=== PATIENT | female | born 1995 | race Two or more races ===

== ENCOUNTER 2021-05-06 15:15 | Observation (INO) | payer MEDICAID, OTHER ==
[2021-05-06] MEDS ORDERED: PREN-96 PO (17:05)
[2021-05-06 18:45] LABS: Urine Bacteria FEW /hpf (None Seen); Urine Blood Negative /uL (Negative); Urine Specific Gravity 1.012 (1.001-1.035); Urine WBC 17 /hpf (0 - 5)
[2021-05-06 18:57] LABS: Albumin 2.7 g/dL (3.4-5.0); Calcium 9.8 mg/dL (8.5-10.1); Potassium 3.8 mmol/L (3.5-5.1)
[2021-05-06 19:05] LABS: INR 0.9 (0.9-1.15); Partial Thromboplastin Time 27.9 sec (23.6-33.0)
[2021-05-06 19:37] LABS: BUN/Creatinine Ratio 21.4; Bilirubin, Total 0.2 mg/dL (0.2-1.0); Total Protein 6.3 g/dL (6.4-8.2); Uric Acid 3.7 mg/dL (2.6-6.0)
[2021-05-06 22:59] LABS: Protein, Urine 21.3 mg/dL (0.0-11.9)
[2021-05-08 08:06] LABS: RPR Non Reactive (Non Reactive)
[2021-05-08 21:43] LABS: 24 Hr. Total Protein, Urine 245.7 mg/24 Hr (<149.1); Protein, Urine 18.9 mg/dL (0.0-11.9)
== END 2021-05-06 20:22 | disposition home or self-care (01) ==
LOC: LDRP 15:15
PROVIDERS: ADMIT Obstetrics & Gynecology Obstetrics; ATTEND Obstetrics & Gynecology Obstetrics
DX: O13.3 Gestational [pregnancy-induced] hypertension without significant proteinuria, third trimester (principal); Z3A.38 38 weeks gestation of pregnancy; Z79.899 Other long term (current) drug therapy
CPT/HCPCS: 36415; 59025; 76818; 80053; 81001; 81002; 82570; 82962; 84156; 84550; 85362; 85379; 85610; 85730; 86592; G0378

== ENCOUNTER 2021-05-08 10:21 | Observation (INO) | payer MEDICAID ==
[~2021-05-08 10:21] MED LIST: PREN-96 PO
[2021-05-08 21:43] LABS: 24 Hr. Total Protein, Urine 245.7 mg/24 Hr (<149.1); Protein, Urine 18.9 mg/dL (0.0-11.9)
== END 2021-05-08 16:02 | disposition home or self-care (01) ==
LOC: LDRP 12:22
PROVIDERS: ADMIT Obstetrics & Gynecology; ATTEND Obstetrics & Gynecology
DX: O13.3 Gestational [pregnancy-induced] hypertension without significant proteinuria, third trimester (principal); Z3A.38 38 weeks gestation of pregnancy
CPT/HCPCS: 59025; 81002; 84156; 94760; G0378

== ENCOUNTER 2021-05-10 15:36 | Observation (INO) | payer MEDICAID | END 2021-05-10 19:26 | disposition home or self-care (01) | LOC: LDRP 15:36 | PROVIDERS: ADMIT Obstetrics & Gynecology; ATTEND Obstetrics & Gynecology | DX: O13.3 Gestational [pregnancy-induced] hypertension without significant proteinuria, third trimester (principal); Z3A.38 38 weeks gestation of pregnancy | CPT/HCPCS: 59025; 76818; 81002; G0378 ==

== ENCOUNTER 2021-05-14 07:44 | Observation (INO) | payer MEDICAID ==
[2021-05-14 15:18] LABS: Protein, Urine 15.1 mg/dL (0.0-11.9)
[2021-05-14 15:51] LABS: Basophils # (auto) 0.1 10 ^3/uL (0-0.2); Basophils % (auto) 1.1 % (0.0-2.0); Eosinophils # (auto) 0 10 ^3/uL (0-0.8); Eosinophils % (auto) 0.3 % (0.0-7.0); Hematocrit 34.5 % (36.0-46.0); Hemoglobin 11.7 g/dL (12.2-16.2); Lymphocytes # (auto) 1.5 10 ^3/uL (0.4-5.4); Mean Corpuscular Hemoglobin 32.7 pg (28.0-32.0); Mean Corpuscular Volume 96.1 fL (80.0-100.0); Monocytes # (auto) 0.9 10 ^3/uL (0-1.3); Monocytes % (auto) 13.4 % (0.0-12.0); Neutrophils # (auto) 4.1 10 ^3/uL (1.6-8.6); Neutrophils % (auto) 62.2 % (37.0-80.0); Nucleated Red Blood Cells % 0.1 %; Red Blood Cells 3.59 10^6/uL (4.0-5.20); Red Cell Distribution Width 13.8 % (11.8-14.3); White Blood Cell 6.6 10^3/uL (4.4-10.8)
[2021-05-14 16:20] LABS: 24 Hr. Total Protein, Urine 249.1 mg/24 Hr (<149.1)
== END 2021-05-14 17:00 | disposition home or self-care (01) ==
LOC: LDRP 13:40
PROVIDERS: ADMIT Obstetrics & Gynecology; ATTEND Obstetrics & Gynecology
DX: O13.3 Gestational [pregnancy-induced] hypertension without significant proteinuria, third trimester (principal); Z3A.39 39 weeks gestation of pregnancy
CPT/HCPCS: 36415; 59025; 76818; 81002; 84156; 85025; 94760; G0378; G0379

== ENCOUNTER 2021-05-19 09:05 | Observation (INO) | payer MEDICAID | END 2021-05-19 11:34 | disposition home or self-care (01) | LOC: LDRP 09:05 | PROVIDERS: ADMIT Obstetrics & Gynecology; ATTEND Obstetrics & Gynecology | DX: O13.3 Gestational [pregnancy-induced] hypertension without significant proteinuria, third trimester (principal); O62.9 Abnormality of forces of labor, unspecified; Z3A.39 39 weeks gestation of pregnancy | CPT/HCPCS: 59025; 76818; 81002; G0378; G0379 ==

== ENCOUNTER 2021-05-19 21:22 | Inpatient (IN) | payer MEDICAID ==
[~2021-05-19] VITALS: Ht 144.8 cm; Wt 72.6 kg
[2021-05-19] MEDS ORDERED: LACT. RINGERS/OXYTOCIN 20UNITS 500 ML IV ONE ×2 (21:30→22:00)
[2021-05-19] MEDS ORDERED: PHISODERM TOP SOLN 240ML BTL TOP PRN (21:30)
[2021-05-19] MEDS ORDERED: BUTORPHANOL TARTRATE 2 MG/1 ML VIAL IV PRN ×2 (21:30)
[2021-05-19] MEDS ORDERED: DERMOPLAST 60ML BOTTLE TOP PRN (21:30)
[2021-05-19] MEDS ORDERED: miSOPROStol 50 MCG per PRE-CUT 1/2 TAB PO PRN (21:30)
[2021-05-19] MEDS ORDERED: PENICILLIN G POT 5MIL/D5 50ML 50 ML IV ONE (21:30)
[2021-05-19] MEDS ORDERED: PROMETHAZINE HCL 25 MG/ML 1ML IV PRN (21:30)
[2021-05-19] MEDS ORDERED: LIDOCAINE 2%HCL (LOCAL ANESTH.) INJ 20ML MDV IJ PRN (21:30)
[2021-05-19] MEDS ORDERED: WITCH HAZEL-GLYCERIN PAD TOP PRN (21:30)
[2021-05-19] MEDS: LACTATED RINGER'S 1,000 ML IV SCH (21:56)
[2021-05-19] MEDS ORDERED: guaiFENesin 200 MG/10 ML UD PO ONE (22:30)
[2021-05-19 22:37] LABS: Basophils # (auto) 0.1 10 ^3/uL (0-0.2); Basophils % (auto) 0.9 % (0.0-2.0); Eosinophils # (auto) 0.2 10 ^3/uL (0-0.8); Eosinophils % (auto) 2.2 % (0.0-7.0); Hemoglobin 12.1 g/dL (12.2-16.2); Lymphocytes # (auto) 2.9 10 ^3/uL (0.4-5.4); Lymphocytes % (auto) 36.9 % (10.0-50.0); Mean Corpuscular Hgb Conc. 34.6 g/dL (32.0-36.0); Mean Corpuscular Volume 95.5 fL (80.0-100.0); Monocytes # (auto) 0.6 10 ^3/uL (0-1.3); Monocytes % (auto) 7.1 % (0.0-12.0); Neutrophils # (auto) 4.1 10 ^3/uL (1.6-8.6); Neutrophils % (auto) 52.9 % (37.0-80.0); Nucleated Red Blood Cells % 0.1 %; Red Blood Cells 3.66 10^6/uL (4.0-5.20); Red Cell Distribution Width 13.5 % (11.8-14.3); White Blood Cell 7.8 10^3/uL (4.4-10.8)
[2021-05-19 22:41] LABS: INR 0.9 (0.9-1.15); Partial Thromboplastin Time 27.3 sec (23.6-33.0)
[2021-05-19 22:56] LABS: Urine Bacteria FEW /hpf (None Seen); Urine Blood TRACE /uL (Negative); Urine Specific Gravity 1.013 (1.001-1.035); Urine WBC 5 /hpf (0 - 5)
[2021-05-19 23:00] LABS: Albumin 2.6 g/dL (3.4-5.0); BUN/Creatinine Ratio 22.1; Calcium 9.5 mg/dL (8.5-10.1); Potassium 4.1 mmol/L (3.5-5.1)
[2021-05-19 23:02] LABS: Bilirubin, Total 0.2 mg/dL (0.2-1.0); Total Protein 6.9 g/dL (6.4-8.2)
[2021-05-19 23:09] LABS: Alcohol, Urine < 3.0 mg/dL (0-10); Amphetamine Screen, Urine NEGATIVE (NEGATIVE); Barbiturate Scree,Urine NEGATIVE (NEGATIVE); Benzodiazephine Screen, Urine NEGATIVE (NEGATIVE); Cannabinoid Screen, Urine NEGATIVE (NEGATIVE); Cocaine Screen, Urine NEGATIVE (NEGATIVE); Opiate Scree,Urine NEGATIVE (NEGATIVE); Phencyclidine Screen, Urine NEGATIVE (NEGATIVE)
[2021-05-20 00:25] LABS: Protein, Urine 19.4 mg/dL (0.0-11.9)
[2021-05-20] MEDS ORDERED: STERILE WATER 10 ML ONE (02:26)
[2021-05-20] MEDS ORDERED: PENICILLIN G POT 5MILLION UNIT VIAL ONE (02:26)
[2021-05-20] MEDS: PENICILLIN G POTASSIUM 2,500,000 UNITS in D5W 5% 50 ML IV SCH ×2 (02:56→08:23)
[2021-05-20] MEDS: LACT. RINGERS/OXYTOCIN 20UNITS 1,000 ML IV SCH ×2 (03:35→13:03)
[2021-05-20] MEDS ORDERED: NALOXONE HCL 0.4 MG/ML VIAL IV ONE (07:30)
[2021-05-20] MEDS ORDERED: ePHEDrine SULFATE 50 MG/ML AMP IV ONE (07:30)
[2021-05-20] MEDS ORDERED: LACTATED RINGER'S 1,000 ML IV ONE (07:30)
[2021-05-20] MEDS ORDERED: ROPIVACAINE HCL 200 ML EPI SCH ×2 (07:30→09:45)
[2021-05-20] MEDS: LACTATED RINGER'S 1,000 ML IV SCH ×2 (08:28→13:32)
[2021-05-20] MEDS ORDERED: PENICILLIN G POTASSIUM 2,500,000 UNITS in D5W 5% 50 ML IV SCH (12:30)
[2021-05-20] MEDS ORDERED: ACETAMINOPHEN 325 MG TAB PO ONE (17:45)
[2021-05-20] MEDS ORDERED: GENTAMICIN PER PHARMACY 0 ML IV SCH (19:15)
[2021-05-20] MEDS ORDERED: GENTAMICIN SULFATE 80 MG in D5W 5% 100 ML IV SCH (19:15)
[2021-05-20] MEDS ORDERED: ACETAMINOPHEN 325 MG TAB PO PRN (20:15)
[2021-05-20] MEDS ORDERED: HYDROcodone-ACET 5/325MG TAB PO PRN (20:15)
[2021-05-20] MEDS ORDERED: ONDANSETRON ODT 4 MG TAB PO PRN (20:15)
[2021-05-20] MEDS: GENTAMICIN SULFATE 80 MG in D5W 5% 100 ML IV SCH (20:43)
[2021-05-20] MEDS: IBUPROFEN 600 MG TAB PO SCH (22:57)
[2021-05-20 23:00] VITALS: BP 116/61
[2021-05-21] VITALS (7 sets, daily range): BP systolic 117–136; BP diastolic 56–72
[2021-05-21] MEDS: DOCUSATE SOD 100 MG CAP PO SCH ×2 (05:04→22:39)
[2021-05-21] MEDS: GENTAMICIN SULFATE 80 MG in D5W 5% 100 ML IV SCH (05:05)
[2021-05-21] MEDS: IBUPROFEN 600 MG TAB PO SCH ×3 (05:54→18:11)
[2021-05-21 06:55] LABS: Basophils # (auto) 0 10 ^3/uL (0-0.2); Basophils % (auto) 0.2 % (0.0-2.0); Eosinophils # (auto) 0.1 10 ^3/uL (0-0.8); Eosinophils % (auto) 0.5 % (0.0-7.0); Hemoglobin 8.8 g/dL (12.2-16.2); Lymphocytes # (auto) 4.1 10 ^3/uL (0.4-5.4); Lymphocytes % (auto) 23.5 % (10.0-50.0); Mean Corpuscular Hemoglobin 32.5 pg (28.0-32.0); Mean Corpuscular Hgb Conc. 33.9 g/dL (32.0-36.0); Mean Corpuscular Volume 95.9 fL (80.0-100.0); Monocytes # (auto) 0.9 10 ^3/uL (0-1.3); Monocytes % (auto) 5.1 % (0.0-12.0); Neutrophils # (auto) 12.5 10 ^3/uL (1.6-8.6); Neutrophils % (auto) 70.7 % (37.0-80.0); Red Blood Cells 2.71 10^6/uL (4.0-5.20); Red Cell Distribution Width 13.6 % (11.8-14.3); White Blood Cell 17.6 10^3/uL (4.4-10.8)
[2021-05-21 07:09] LABS: Calcium 9.5 mg/dL (8.5-10.1); Potassium 4.1 mmol/L (3.5-5.1)
[2021-05-21 07:11] LABS: BUN/Creatinine Ratio 18.6
[2021-05-22] MEDS: IBUPROFEN 600 MG TAB PO SCH ×4 (06:30→17:33)
[2021-05-22 07:00] VITALS: BP 132/67
[2021-05-22 11:02] VITALS: BP 121/66
[2021-05-22] MEDS ORDERED: FERROUS SULFATE 325mg EC TAB PO SCH (14:00)
[2021-05-22 14:38] VITALS: BP 122/60
[2021-05-22 18:09] VITALS: BP 135/60
[2021-05-22 19:30] VITALS: BP 126/63
== END 2021-05-22 20:30 | disposition home or self-care (01) | DRG 560 ==
LOC: UNDOADMIN 21:22 → LDRP 21:22 → UNDODISIN 05-22 20:30
PROVIDERS: ADMIT Obstetrics & Gynecology; ATTEND Obstetrics & Gynecology
PROC: 10E0XZZ Delivery of Products of Conception, External Approach (ICD-10-PCS; principal; 2021-05-20)
PROC: 3E033VJ Introduction of Other Hormone into Peripheral Vein, Percutaneous Approach (ICD-10-PCS; 2021-05-20)
PROC: 0HQ9XZZ Repair Perineum Skin, External Approach (ICD-10-PCS; 2021-05-20)
PROC: 3E0R3BZ Introduction of Anesthetic Agent into Spinal Canal, Percutaneous Approach (ICD-10-PCS; 2021-05-20)
PROC: 00HU33Z Insertion of Infusion Device into Spinal Canal, Percutaneous Approach (ICD-10-PCS; 2021-05-20)
DX: O13.4 Gestational [pregnancy-induced] hypertension without significant proteinuria, complicating childbirth (principal); Z37.0 Single live birth; U07.1 COVID-19; O99.12 Other diseases of the blood and blood-forming organs and certain disorders involving the immune mechanism complicating childbirth; O99.42 Diseases of the circulatory system complicating childbirth; O48.0 Post-term pregnancy; O99.824 Streptococcus B carrier state complicating childbirth; O76 Abnormality in fetal heart rate and rhythm complicating labor and delivery; O90.81 Anemia of the puerperium; D72.829 Elevated white blood cell count, unspecified; I51.7 Cardiomegaly; O98.52 Other viral diseases complicating childbirth; O70.0 First degree perineal laceration during delivery; Z3A.39 39 weeks gestation of pregnancy
CPT/HCPCS: 36415; 59025; 59409; 62282; 71045; 80048; 80053; 80170; 80307; 81001; 81002; 82570; 84156; 85025; 85610; 85730; 86850; 86900; 86901; 94760; 96360; 96361; 96365; 96366; 96374; 96375; G0378; J2540; J2590; J7060

== ENCOUNTER 2022-09-09 19:11 | Observation (INO) | payer MEDICAID ==
[~2022-09-09] VITALS: Ht 144.8 cm; Wt 63.5 kg
== END 2022-09-09 20:29 | disposition home or self-care (01) ==
LOC: LDRP 19:11
PROVIDERS: ADMIT Obstetrics & Gynecology; ATTEND Obstetrics & Gynecology
DX: O62.9 Abnormality of forces of labor, unspecified (principal); Z3A.39 39 weeks gestation of pregnancy; W19.XXXA Unspecified fall, initial encounter; Y92.89 Other specified places as the place of occurrence of the external cause; Y93.89 Activity, other specified; Y99.8 Other external cause status
CPT/HCPCS: 59025; 81002; 94760; G0378

== ENCOUNTER 2022-09-14 03:27 | Inpatient (IN) | payer MEDICAID ==
[~2022-09-14] VITALS: Ht 147.3 cm; Wt 63.5 kg
[2022-09-14] MEDS ORDERED: LACT. RINGERS/OXYTOCIN 20UNITS 500 ML IV ONE ×2 (04:15→04:45)
[2022-09-14] MEDS ORDERED: BUTORPHANOL TARTRATE 2 MG/1 ML VIAL IV PRN ×2 (04:15)
[2022-09-14] MEDS ORDERED: WITCH HAZEL-GLYCERIN PAD TOP PRN (04:15)
[2022-09-14] MEDS ORDERED: PROMETHAZINE HCL 25 MG/ML 1ML IV PRN (04:15)
[2022-09-14] MEDS ORDERED: DERMOPLAST 60ML BOTTLE TOP PRN (04:15)
[2022-09-14] MEDS ORDERED: LACTATED RINGER'S 1,000 ML IV SCH (04:15)
[2022-09-14] MEDS ORDERED: PHISODERM TOP SOLN 240ML BTL TOP PRN (04:15)
[2022-09-14] MEDS ORDERED: LIDOCAINE 2%HCL (LOCAL ANESTH.) INJ 20ML MDV IJ PRN (04:15)
[2022-09-14 05:31] LABS: Basophils # (auto) 0 10 ^3/uL (0-0.2); Basophils % (auto) 0.2 % (0.0-2.0); Eosinophils # (auto) 0.1 10 ^3/uL (0-0.8); Eosinophils % (auto) 0.8 % (0.0-7.0); Hematocrit 35.1 % (36.0-46.0); Hemoglobin 11.9 g/dL (12.2-16.2); Lymphocytes # (auto) 3.1 10 ^3/uL (0.4-5.4); Lymphocytes % (auto) 32.6 % (10.0-50.0); Mean Corpuscular Hemoglobin 32.5 pg (28.0-32.0); Mean Corpuscular Hgb Conc. 33.8 g/dL (32.0-36.0); Mean Corpuscular Volume 95.9 fL (80.0-100.0); Monocytes # (auto) 0.7 10 ^3/uL (0-1.3); Monocytes % (auto) 7.6 % (0.0-12.0); Neutrophils # (auto) 5.5 10 ^3/uL (1.6-8.6); Neutrophils % (auto) 58.8 % (37.0-80.0); Nucleated Red Blood Cells % 0.1 %; Red Blood Cells 3.66 10^6/uL (4.0-5.20); Red Cell Distribution Width 14.7 % (11.8-14.3); White Blood Cell 9.4 10^3/uL (4.4-10.8)
[2022-09-14 05:34] LABS: Urine Bacteria FEW /hpf (None Seen); Urine Blood Negative /uL (Negative); Urine Hyaline Cast FEW /lpf (0 - 2); Urine Specific Gravity 1.016 (1.001-1.035); Urine WBC 12 /hpf (0 - 5)
[2022-09-14 05:38] LABS: Alcohol, Urine < 3.0 mg/dL (0-10); Amphetamine Screen, Urine NEGATIVE (NEGATIVE); Barbiturate Scree,Urine NEGATIVE (NEGATIVE); Benzodiazephine Screen, Urine NEGATIVE (NEGATIVE); Cannabinoid Screen, Urine NEGATIVE (NEGATIVE); Cocaine Screen, Urine NEGATIVE (NEGATIVE); Opiate Scree,Urine NEGATIVE (NEGATIVE); Phencyclidine Screen, Urine NEGATIVE (NEGATIVE)
[2022-09-14 05:39] LABS: Potassium 3.8 mmol/L (3.5-5.1)
[2022-09-14 05:40] LABS: Protein, Urine 23.4 mg/dL (0.0-11.9)
[2022-09-14 05:45] LABS: INR 0.87 (0.9-1.15); Partial Thromboplastin Time 27.3 sec (24.6-33.4)
[2022-09-14 05:49] LABS: Albumin 2.6 g/dL (3.4-5.0); BUN/Creatinine Ratio 35.1 (10.0-20.0); Bilirubin, Total 0.3 mg/dL (0.2-1.0); Total Protein 6.6 g/dL (6.4-8.2)
[2022-09-14] MEDS ORDERED: NALOXONE HCL 0.4 MG/ML VIAL IV ONE (06:30)
[2022-09-14] MEDS ORDERED: fentaNYL CITRATE 100 MCG/2 ML VL IV ONE (06:30)
[2022-09-14] MEDS ORDERED: LACTATED RINGER'S 1,000 ML IV ONE (06:30)
[2022-09-14] MEDS ORDERED: ROPIVACAINE HCL 200 ML EPI SCH (06:30)
[2022-09-14] MEDS ORDERED: LIDOCAINE HCL 2 %PF INJ 10ML AMP IJ ONE (06:30)
[2022-09-14] MEDS ORDERED: ePHEDrine SULFATE 50 MG/ML AMP IV ONE (06:30)
[2022-09-14] MEDS ORDERED: METHYLERGONOVINE MALEATE 0.2 MG/ML AMP IM ONE (07:45)
[2022-09-14] MEDS ORDERED: ONDANSETRON HCL 4 MG/2 ML VIAL IV PRN (10:00)
[2022-09-14] MEDS ORDERED: DIPHENOXYLATE W/ATROPINE 2.5 MG TAB PO SCH (10:00)
[2022-09-14] MEDS ORDERED: CARBOPROST TROMETHAMINE 250 MCG/1ML VIAL IM PRN (10:00)
[2022-09-14] MEDS ORDERED: ONDANSETRON ODT 4 MG TAB PO PRN (10:30)
[2022-09-14] MEDS: IBUPROFEN 600 MG TAB PO PRN ×2 (10:56→21:03)
[2022-09-14] MEDS: ceFAZolin 1GM/50ML 50 ML IV SCH ×2 (11:22→19:08)
[2022-09-14] MEDS: ACETAMINOPHEN 325 MG TAB PO PRN ×2 (14:57→23:19)
[2022-09-14 15:00] VITALS: BP 110/55
[2022-09-14 18:30] VITALS: BP 110/57
[2022-09-14] MEDS ORDERED: DOCUSATE SOD 100 MG CAP PO SCH (22:00)
[2022-09-14 23:10] VITALS: BP 126/58
[2022-09-15 03:15] VITALS: BP 119/68
[2022-09-15] MEDS: ceFAZolin 1GM/50ML 50 ML IV SCH (03:16)
[2022-09-15] MEDS: IBUPROFEN 600 MG TAB PO PRN (03:24)
[2022-09-15 07:00] VITALS: BP 111/55
[2022-09-15] MEDS ORDERED: miSOPROStol 100 mcg TAB PO ONE (09:09)
[2022-09-16 08:07] LABS: RPR Non Reactive (Non Reactive)
== END 2022-09-15 09:10 | disposition home or self-care (01) | DRG 560 ==
LOC: LDRP 03:27 → OBSVTOIN 04:00 → LDRP 05:15
PROVIDERS: ADMIT Obstetrics & Gynecology; ATTEND Obstetrics & Gynecology
PROC: 10D07Z6 Extraction of Products of Conception, Vacuum, Via Natural or Artificial Opening (ICD-10-PCS; principal; 2022-09-14)
PROC: 0KQM0ZZ Repair Perineum Muscle, Open Approach (ICD-10-PCS; 2022-09-14)
PROC: 3E0R3BZ Introduction of Anesthetic Agent into Spinal Canal, Percutaneous Approach (ICD-10-PCS; 2022-09-14)
PROC: 00HU33Z Insertion of Infusion Device into Spinal Canal, Percutaneous Approach (ICD-10-PCS; 2022-09-14)
DX: O48.0 Post-term pregnancy (principal); Z37.0 Single live birth; O70.1 Second degree perineal laceration during delivery; Z3A.40 40 weeks gestation of pregnancy
CPT/HCPCS: 36415; 59025; 59409; 62282; 80053; 80307; 81001; 81002; 82570; 84156; 84550; 85025; 85610; 85730; 86592; 86850; 86900; 86901; 94760; 96360; 96361; 96365; 96366; G0378; J0690; J2590; Q0162

== ENCOUNTER → 2023-01-19 | Outpatient (CLI) | payer MEDICAID | END | disposition home or self-care (01) | LOC: LAB 06:00 | PROVIDERS: ATTEND Obstetrics & Gynecology | DX: Z12.4 Encounter for screening for malignant neoplasm of cervix (principal) ==

== ENCOUNTER → 2023-04-03 | Day surgery (SDC) | payer MEDICAID ==
[2023-04-01 11:30] LABS: Basophils # (auto) 0 10 ^3/uL (0-0.2); Basophils % (auto) 0.4 % (0.0-2.0); Eosinophils # (auto) 0.1 10 ^3/uL (0-0.8); Eosinophils % (auto) 0.9 % (0.0-7.0); Hematocrit 43.1 % (36.0-46.0); Hemoglobin 14.9 g/dL (12.2-16.2); Lymphocytes # (auto) 3.3 10 ^3/uL (0.4-5.4); Lymphocytes % (auto) 37.1 % (10.0-50.0); Mean Corpuscular Hemoglobin 32.2 pg (28.0-32.0); Mean Corpuscular Hgb Conc. 34.6 g/dL (32.0-36.0); Mean Corpuscular Volume 93.2 fL (80.0-100.0); Monocytes # (auto) 0.5 10 ^3/uL (0-1.3); Monocytes % (auto) 5.6 % (0.0-12.0); Nucleated Red Blood Cells % 0.1 %; Red Blood Cells 4.62 10^6/uL (4.0-5.20); Red Cell Distribution Width 13.7 % (11.8-14.3)
[2023-04-01 12:04] LABS: INR 0.98 (0.9-1.15); Partial Thromboplastin Time 29.3 SEC (24.5-34.5); Prothrombin Time 10.3 sec (9.3-11.8)
[2023-04-01 12:10] LABS: Urine Bacteria NONE SEEN /hpf (None Seen); Urine Blood TRACE /uL (Negative); Urine Clarity Clear (Clear); Urine Color Yellow (Yellow); Urine Protein, UAD TRACE (Negative); Urine Specific Gravity 1.027 (1.001-1.035); Urine Urobilinogen Normal (Negative); Urine WBC 2 /hpf (0 - 5); Urine pH 5.5 (5.0-8.0)
[2023-04-01 12:17] LABS: Alanine Aminotransferase 38 U/L (7-40); Albumin 4.9 g/dL (3.2-4.8); Alkaline Phosphatase 96 U/L (46-116); Anion Gap 4 (5-15); Aspartate Aminotransferase 15 U/L (13-40); BUN/Creatinine Ratio 18.3 (10.0-20.0); Bilirubin, Total 0.4 mg/dL (0.2-1.0); Blood Urea Nitrogen 11 mg/dL (9-23); Calcium 10.5 mg/dL (8.7-10.4); Carbon Dioxide 24 mmol/L (20-30); Chloride 109 mmol/L (98-107); Glucose 93 mg/dL (74-106); Potassium 4.1 mmol/L (3.5-5.1); Sodium 137 mmol/L (136-145); Total Protein 8.2 g/dL (5.7-8.2)
[~2023-04-03] VITALS: Ht 147.3 cm; Wt 53.5 kg
[~2023-04-03] MED LIST changes: +CONJ ESTROGENS 0.625MG/GM VAG CRM 30GM PV ONE; +FERRIC SUBSULFATE TOPICAL SOLN 30 ML BTL ONE; +HYDR-4902 PO; +HYDROmorphone HCL 2 MG/ML VL/or syr IV PRN; +IBUP-1454 PO; +IODINE STRONG 5% SOLN 473ML ONE; +KETOROLAC TROMETH 60MG/2ML VIAL ONE; +LIDOCAINE 1% HCL (LOCAL ANESTH.) INJ 20ML MDV ONE; +LIDOCAINE 2% (LOCAL ANESTH.) PF 5ml SDV ONE; +LIDOCAINE W/ EPINEPHRINE 2% INJ 20ML VIAL ONE; +METOCLOPRAMIDE HCL 5MG/ml INJ 2ml VIAL IV PRN; +MIDAZOLAM HCL 2MG/2ML 2ml VIAL (1mg/ml) ONE; +MORPHINE SULFATE INJ 2 MG/ml SYRG IV PRN; +ONDANSETRON HCL 4 MG/2 ML VIAL ONE; -PREN-96 PO; +PROPOFOL 10 MG/ML 20 ML IV ONE; +SODIUM CHLORIDE LOCK 10 ML ONE; +ceFAZolin 2 GM/D5W100ml 100 ML IV ONE; +fentaNYL CITRATE 100 MCG/2 ML VL ONE
[2023-04-03 14:37] VITALS: O2SAT 100
[2023-04-03 16:22] VITALS: BP 143/71; PULSE 63; RESP 14; O2SAT 100
== END | disposition home or self-care (01) ==
LOC: SUR 08:47
PROVIDERS: ATTEND Obstetrics & Gynecology
DX: N87.1 Moderate cervical dysplasia (principal); I10 Essential (primary) hypertension; Z79.1 Long term (current) use of non-steroidal anti-inflammatories (NSAID); Z79.891 Long term (current) use of opiate analgesic
CPT/HCPCS: 36415; 57522; 80053; 81001; 81025; 85025; 85610; 85730; 86850; 86900; 86901; J1885; J2001; J2250; J2405; J2704; J3010